=== PATIENT | female | born 1985 | race Caucasian/White ===

== ENCOUNTER 2023-11-23 12:41 | Emergency (ER) | payer BC, SELFPAY ==
[2023-11-23 12:53] VITALS: BP 147/87
[2023-11-23 12:56] VITALS: BMI 26.5
[2023-11-23] MEDS: ADACEL 0.5 ML IM (15:17)
--- NOTE | 2023-11-23 15:42 | ED.SKININJ ---
HPI-Injury
General
Chief Complaint: Bite
Source: patient
Exam Limitations: none
Time Seen by Provider: 11/23/23 14:46
Nursing documentation reviewed up to this point in time: agreed with
Travel History
Have you had any contact with someone who has COVID-19?: No
Do you have any symptoms of coronavirus? Fever > 100 degrees, chills, cough, shortness of breath, sore throat, loss of taste or smell, muscle aches, or headache?: No
History of Present Illness-Injury
Is this injury a work related problem?: No
Is pt an associate of [facility]?: No
Initial Injury comments:
Bit by her dog while breaking up fight between her two dogs. Sustained bite to left dorsal hand. left thigh. Injury occurred just [employer].
Past History
Past History
ED Past Medical History: None
ED Past Surgical History: None
Review of Systems
Review of Systems
Allergies reviewed?: Yes
All Other Systems: ROS reviewed and negative except as documented in HPI and ROS
Constitutional: Reports no symptoms
EENT: Reports no symptoms
Respiratory: Reports no symptoms
Cardiac: Reports no symptoms
ABD/GI: Reports no symptoms
: Reports no symptoms
Musculoskeletal: Reports no symptoms
Skin: Reports other (dog bite to left dorsal hand, left thigh)
Neurological: Reports no symptoms
Psychiatric: Reports no symptoms
Skin Exam
Bite
Left Dorsal Hand:
Type: animal
Skin has: full thickness laceration
Laceration length in cm: 1
Surrounding area around bite has: no evidence of erythema
Distal skin color and temperature: normal-warm & good color
Normal distal neurovascular exam: Yes
Left Thigh:
Type: animal
Skin has: puncture wounds
Surrounding area around bite has: no evidence of erythema
Phy Exam
General Physical Exam
General Presentation: well appearing and no apparent distress
General age: appears stated age
General Skin: warm and dry
General Habitus: normal
General Mental: alert
Musculoskeletal Exam
Musculoskeletal Exam: neuro vasc intact
Skin Exam
Skin Exam: normal color, warm/dry and no rash
Psychiatric Exam
Psychiatric Exam: normal mood/affect
Course
Orders/Labs/Results
Orders:
Orders
11/23/23 14:51
Hand, Left 3 View [CR Hand - Left Min 3 Views] Urgent
Comment:
Reason For Exam: dog bite
11/23/23 14:52
Tetanus/Diphth/Acelpertussis [Adacel] 0.5 ml IM .ONCE ONE
11/23/23 15:39
Amoxicillin 875 mg/Clav 125 mg [Augmentin 875 mg/125 mg] 1 tablet PO NOW STA
11/23/23 15:40
Sling Left-Treatment ONCE
Temple Wrist Left-Treatment ONCE
Vital Signs
Initial and Last Documented VS:
Initial Vital Signs
Temp Pulse Resp BP Pulse Ox
97.7 F 88 18 147/87 99
11/23/23 12:53 11/23/23 12:53 11/23/23 12:53 11/23/23 12:53 11/23/23 12:53
Last Documented Vital Signs
Temp Pulse Resp BP Pulse Ox
97.7 F 88 18 147/87 99
11/23/23 12:53 11/23/23 12:53 11/23/23 12:53 11/23/23 12:53 11/23/23 12:53
*Radiology
Radiology exam reviewed: radiology read reviewed
*Pulse Oximetry
Patient hypoxic: no
*Critical Care Note
Total Time (30-74mins, 75-104mins- exclusive of procedures): Not Applicable
ED Attending Note
-
Portions of this chart may have been created with voice recognition software.� Occasional wrong word or��sound alike� substitutions may have occurred due to the inherent limitations of voice recognition software.
Discharge Plan
Departure
Patient Disposition: Home (Routine Discharge)
Date of Disposition: 11/23/23
Time of Disposition: 15:40
Patient with high blood pressure during this ER visit?: No
Condition: Good
Covid-19: Not Applicable
Discharge Problem:
Dog bite of hand
Instructions: Animal Bites (DC), Wound Care (DC)
Prescriptions:
New
amoxicillin-pot clavulanate 875-125 mg tablet
1 tab PO BID Qty: 14 0RF
Referrals:
Zeke Langford MD [Active] - (Hand surgeon. Follow up as needed.)
Eyad Woo MD [Family Provider] - Follow up in 2-3 days
Interventions
Interventions:
*Risk Screen - Suicide Last Done: 11/23/23 12:56
*General Assessment Last Done: 11/23/23 16:22
*Neglect/Abuse Screening Last Done: 11/23/23 12:56
ED- Fall Risk Assessment Last Done: 11/23/23 16:22
*ED COVID-19 Vaccine History Last Done: 11/23/23 12:56
*Nursing Disposition Last Done: 11/23/23 16:22
ED-Skin Assessment Last Done: 11/23/23 16:22
Discharge Date and Time
Discharge Date/Time: 11/23/23 16:01
[2023-11-23] MEDS: AUGMENTIN 875 MG/125 MG 1 TABLET PO (15:56)
== END 2023-11-23 16:01 | disposition home or self-care (01) ==
LOC: EMR 12:41
PROVIDERS: EMERGENCY PHYSICIAN Emergency Medicine; FAMILY PHYSICIAN Internal Medicine
DX: S61.452A Open bite of left hand, initial encounter (principal); S71.152A Open bite, left thigh, initial encounter; W54.0XXA Bitten by dog, initial encounter; Z23 Encounter for immunization
CPT/HCPCS: 99283; 90471; 29125; 73130; 90715